=== PATIENT | female | born 1980 | race Two or more races ===

== ENCOUNTER 2019-11-12 14:05 | Emergency (ER) | payer SELFPAY ==
[~2019-11-12] VITALS: Ht 160 cm; Wt 55.0 kg
[2019-11-12 14:12] VITALS: BP 118/77
== END 2019-11-12 17:03 | disposition left against medical advice (07) ==
LOC: EDBD 14:05 → ER 14:05
DX: Z53.21 Procedure and treatment not carried out due to patient leaving prior to being seen by health care provider (principal)